=== PATIENT | male | born 1965 | race Caucasian/White ===

== ENCOUNTER 2016-10-16 13:11 | Emergency (ER) | payer MEDICARE, OTHER ==
[~2016-10-16 13:11] MED LIST: ACETAMINOPHEN PO; ACETAMINOPHEN650 M3 PO; ADVAIR 2501 DISK W/D PO; ALBUTEROL17 GM INH; ALBUTEROL17 GM PO; AMBIZINE25 MG PO; AMLODIPINE BESYL5 MG PO; ANTIVERT PO; ASPIRIN EC81 M1 PO; ASPIRIN81 M2 PO; ASPIRIN81 MG PO; ATIVAN INJ; ATIVAN PO; ATIVAN2 MG PO; ATORVASTATIN CA80 MG PO; AUGMENTIN875 MG PO; B-1100 MG PO; BAYER CHEWABLE81 MG PO; BONINE25 M1 PO; CARVEDILOL3.125 MG PO; CATAPRES0.1 MG PO; CIPRO PO; CLONIDINE HCL0.1 MG PO; CLOPIDOGREL75 MG PO; COMBIVENT U/D3 ML INH; COREG PO; COREG3.125 MG PO; COREG6.25 M1 PO; DEPAKOTE125 MG PO; DILANTIN KAPSE100 MG PO; DILANTIN PO; FAMVIR250 MG PO; FLOMAX0.4 M1 PO; FOLIC ACID1 MG PO; FOLIC ACID20 MG PO; FUROSEMIDE40 MG PO; GABAPENTIN800 MG PO; HYDROCODONE-APA1 T58 PO; HYDROCODONE/APA1 T16 PO; IBUPROFEN PO; IBUPROFEN800 MG PO; IMDUR-ER30 MG PO; KEPPRA1000 MG PO; KEPPRA500 M1 PO; KEPPRA500 M2 PO; KEPPRA500 MG PO; KLONOPIN PO; KLONOPIN1 MG PO; LASIX PO; LEVAQUIN PO; LIPITOR PO; LIPITOR20 MG PO; LIPITOR80 MG PO; LISINOPRIL-HCTZ1 T19 PO; LISINOPRIL2.5 MG PO; LORAZEPAM1 MG PO; LORTAB 101 TAB 10/5 PO; LORTAB 5-325 M1 EACH PO; LORTAB 7.5-3251 EACH PO; MEDI-MECLIZINE25 M1 PO; MULTI VITAMIN1 EACH PO; MULTI-VITAMIN1 EAC1 PO; MULTI-VITAMIN1 TAB PO; MULTIVITAMINS1 EAC2 PO; NEURONTIN PO; NEURONTIN300 MG PO; NEURONTIN800 MG PO; NITROGLYGERIN0.4 MG SL; NORCO 10-325 TA1 TAB PO; NORCO 10/3251 TAB PO; NORVASC PO; OMEPRAZOLE40 MG PO; ONE TABLET DAIL1 TA2 PO; OXYCODON HCL-1 UDTAB PO; OXYCODONE HCL15 MG PO; PERCOCET 10/3251 TAB PO; PLAVIX PO; PREDNISONE PO; PROAIR HFA8.5 GM INH; RANEXA PO; RANEXA500 MG PO; SERTRALINE HCL100 MG PO; THIAMINE HCL100 MG PO; TRAZODONE PO; VIMPAT50 MG PO; VISTARIL; VITAMIN B-1100 M1 PO; WATER PILL; ZESTRIL2.5 M1 PO; ZIAGEN300 M1; ZOLOFT PO
[2017-05-01] MEDS ORDERED: DEPAKOTE PO (10:06)
[2017-05-01] MEDS ORDERED: AMBIEN10 MG PO (10:07)
[2017-05-01] MEDS ORDERED: KLONOPIN1 MG PO (10:07)
[2017-05-01] MEDS ORDERED: HYDROCODON-ACE1 EAC5 PO (10:07)
[2017-05-01] MEDS ORDERED: NEURONTIN600 MG PO (10:09)
[2017-05-01] MEDS ORDERED: VIT B-12 PO (10:11)
[2017-05-01] MEDS ORDERED: CYMBALTA30 M1 PO (10:12)
[2017-05-01] MEDS ORDERED: XARELTO15 MG PO (10:12)
[2017-05-01] MEDS ORDERED: AMIODARONE HCL200 MG PO (10:12)
[2017-05-01] MEDS ORDERED: PROTONIX PO (10:13)
[2017-05-01] MEDS ORDERED: K-DUR20 ME1 PO (10:13)
[2017-05-01] MEDS ORDERED: CLOPIDOGREL75 MG PO (10:13)
[2017-05-01] MEDS ORDERED: COREG3.125 MG PO (10:13)
[2017-05-01] MEDS ORDERED: ASPIRIN81 MG PO (10:14)
== END 2016-10-16 13:26 | disposition home or self-care (01) ==
LOC: CED 13:11
DX: T80.89XA Other complications following infusion, transfusion and therapeutic injection, initial encounter (principal); F17.210 Nicotine dependence, cigarettes, uncomplicated; Z95.1 Presence of aortocoronary bypass graft; Z88.5 Allergy status to narcotic agent; Z88.6 Allergy status to analgesic agent; Z88.8 Allergy status to other drugs, medicaments and biological substances
CPT/HCPCS: 36415; 80048; 80076; 80307; 81003; 82150; 83690; 85025; 85610; 85730; 93005; 96361; 96374; 99283; 99284; G0480; J2405

== ENCOUNTER 2016-10-24 14:14 | Emergency (ER) | payer MEDICARE, OTHER ==
--- NOTE | ~2016-10-24 | EKG ---
PATIENT: DANIEL RENAE UNIT #: [id number] Ventricular Rate: 111 BPM Atrial Rate: 111 BPM P-R Interval: 132 ms QRS Duration: 104 ms Q-T Interval: 382 ms QTC Calculation(Bezet): 519 ms P Macomb: 32 degrees Calculated R Macomb: 22 degrees Calculated T Macomb: -11 degrees Diagnosis Line: Sinus tachycardia with occasional Premature Diagnosis Line: ventricular complexes Diagnosis Line: Possible Left atrial enlargement Diagnosis Line: Inferior infarct (cited on or before 19-MAR-2016) Diagnosis Line: Abnormal ECG Diagnosis Line: When compared with ECG of 16-OCT-2016 04:46, Diagnosis Line: Premature ventricular complexes are now Present Diagnosis Line: Confirmed by EDITH MARK MD ([id number]) on Diagnosis Line: 10/25/2016 8:02:06 AM INTERPRETING MD: DEEDEE MASON
--- NOTE | ~2016-10-24 | CR72 ---
[facility] A Service of [facility] & [facility] RADIOLOGY TEXT RESULTS PATIENT: DANIEL RENAE LOCATION: [facility] : [birth year] UNIT #: [id number] AGE: [address]: Doc Taylor MD SEX: M ORDER DR: [id number] [facility] [address] [place], [place] [address] [id number] E MR#: [id number] Acc #: [id number] NAME: DANIEL RENAE. : 1965 SEX: M STUDY DATE/TIME: 10/24/2016 14:00 UNIT: [facility] ROOM: STUDY DESCRIPTION: CR Chest Single View Portable Attending Physician: Doc Taylor M.D. Ordering Physician: Doc Taylor M.D. Primary Care Physician: Solo Jimenez M.D. MEDICAL IMAGING REPORT This report is preliminary unless electronic signature is present EXAM Portable chest 10/24/2016 HISTORY 51-year-old male with palpitations and chest pain beginning today. COMPARISON: Chest 08/18/2016 FINDINGS Frontal chest demonstrates clear lungs. No pleural effusion or pneumothorax. Heart size and mediastinum within normal limits. Pulmonary vasculature unremarkable. Left-sided AICD complex. Median sternotomy wires. IMPRESSION No acute cardiopulmonary findings. Left-sided AICD complex. Dictated by... Mendez Gutierrez M.D. THIS IS AN ELECTRONICALLY VERIFIED REPORT Mendez Gutierrez M.D. at 10/26/2016 8:34 AM ANDER/josefa TD: 10/25/2016 10:12 JOB #: [id number] MEDICAL IMAGING REPORT Page 1 of 1 COPY
[2016-10-24 14:25] LABS: BASOPHIL% 0.4 % (0-2.5); EOSINOPHIL# 0.2 X10e3 (0-0.7); EOSINOPHIL% 3.9 % (0.0-7.0); HEMATOCRIT 36.2 % (38.0-50.0); HEMOGLOBIN 11.7 gm/dL (13.0-16.0); LYMPHOCYTE# 1.2 X10e3 (1.0-3.5); LYMPHOCYTE% 23.3 % (17.0-45.0); MEAN CELL VOLUME 86.8 FL (83-96); MEAN CORPUSCULAR HGB CONC 32.3 g/dL (30-36); MEAN PLATELET VOLUME 9.9 FL (6.5-11.5); MONOCYTE# 0.4 X10e3 (0-1.0); MONOCYTE% 8.1 % (3.0-12.0); NEUTROPHIL# 3.4 X10e3 (1.5-7.1); NEUTROPHIL% 64.3 % (40-75); PLATELET COUNT 147 X10e3 (140-420); RED BLOOD COUNT 4.17 X10e (3.90-5.60); WHITE BLOOD COUNT 5.2 X10e3 (4.0-10.5)
[2016-10-24 14:34] LABS: DIFF IND NO
[2016-10-24 14:46] LABS: INR 1.1; PARTIAL THROMBOPLASTIN TIME 27.9 SECONDS (23.5-31.3); PROTHROMBIN TIME (PATIENT) 11.1 SECONDS (9.6-11.5)
[2016-10-24 15:01] LABS: ALBUMIN SERUM 3.3 g/dL (3.5-5.0); ALKALINE PHOSPHATASE 64 U/L (32-92); ALT (SGPT) 60 U/L (10-40); AST (SGOT) 61 U/L (10-42); BILIRUBIN, DIRECT 0.1 mg/dL (0.0-0.2); BILIRUBIN,INDIRECT 0.4 mg/dL (0.0-0.9); BILIRUBIN,TOTAL 0.5 mg/dL (0.2-2.0); BLOOD UREA NITROGEN 9 mg/dL (9-23); BUN/CREATININE RATIO 12.85; CALCIUM SERUM 8.7 mg/dL (8.4-10.2); CARBON DIOXIDE 26 mmol/L (22-31); CHLORIDE 105 mmol/L (100-111); CREATININE SERUM 0.7 mg/dL (0.6-1.4); GLOM FILT RATE Estimated ABOVE60 mL/min (>60); GLUCOSE FASTING 119 mg/dL (70-110); MAGNESIUM 1.7 mg/dL (1.6-3.0); POTASSIUM 3.8 mmol/L (3.5-5.1); PROTEIN TOTAL SERUM 6.5 g/dL (6.0-8.3); SODIUM 139 mmol/L (135-145)
[2016-10-24 15:02] LABS: POC - CKMB 1.1 ng/mL (0.0-7.9); POC - TROPONIN <0.05 ng/mL (<=0.05)
[2016-10-24 15:16] LABS: URINE SOURCE CLEAN CATCH
[2016-10-24 15:20] LABS: URINE APPEARANCE CLEAR; URINE BILIRUBIN NEG (NEG); URINE BLOOD NEG (NEG); URINE COLOR YELLOW; URINE GLUCOSE NEG (NEG); URINE KETONE NEG (NEG); URINE LEUKOCYTE ESTERASE NEG (NEG); URINE NITRATE NEG (NEG); URINE PH 6.5 (5-8); URINE PROTEIN NEG (NEG); URINE SPECIFIC GRAVITY 1.006 (1.003-1.035); URINE UROBILINOGEN 0.2 MG/DL (NEG)
[2016-10-24 15:27] LABS: CULTURE INDICATED? NO
[2016-10-24 15:31] LABS: AMPHETAMINE NEG (NEG); BARBITURATES NEG (NEG); BENZODIAZEPINES NEG (NEG); COCAINE NEG (NEG); MARIJUANA NEG (NEG); OPIATES POS (NEG); TRICYCLIC ANTIDEPRESSANTS POS (NEG); U METHADONE NEG (NEG)
[2016-10-24 17:54] LABS: POC - CKMB <1.0 ng/mL (0.0-7.9); POC - TROPONIN <0.05 ng/mL (<=0.05)
[2017-05-01] MEDS ORDERED: DEPAKOTE PO (10:06)
[2017-05-01] MEDS ORDERED: KLONOPIN1 MG PO (10:07)
[2017-05-01] MEDS ORDERED: AMBIEN10 MG PO (10:07)
[2017-05-01] MEDS ORDERED: HYDROCODON-ACE1 EAC5 PO (10:07)
[2017-05-01] MEDS ORDERED: NEURONTIN600 MG PO (10:09)
[2017-05-01] MEDS ORDERED: VIT B-12 PO (10:11)
[2017-05-01] MEDS ORDERED: CYMBALTA30 M1 PO (10:12)
[2017-05-01] MEDS ORDERED: AMIODARONE HCL200 MG PO (10:12)
[2017-05-01] MEDS ORDERED: XARELTO15 MG PO (10:12)
[2017-05-01] MEDS ORDERED: PROTONIX PO (10:13)
[2017-05-01] MEDS ORDERED: K-DUR20 ME1 PO (10:13)
[2017-05-01] MEDS ORDERED: COREG3.125 MG PO (10:13)
[2017-05-01] MEDS ORDERED: CLOPIDOGREL75 MG PO (10:13)
[2017-05-01] MEDS ORDERED: ASPIRIN81 MG PO (10:14)
== END 2016-10-24 20:20 | disposition home or self-care (01) ==
LOC: CED 14:14
PROVIDERS: Emergency Medicine
DX: R07.89 Other chest pain (principal); R00.2 Palpitations; I25.10 Atherosclerotic heart disease of native coronary artery without angina pectoris; I11.0 Hypertensive heart disease with heart failure; I50.9 Heart failure, unspecified; Z95.5 Presence of coronary angioplasty implant and graft; Z95.1 Presence of aortocoronary bypass graft; Z95.0 Presence of cardiac pacemaker; Z88.5 Allergy status to narcotic agent; F17.200 Nicotine dependence, unspecified, uncomplicated
CPT/HCPCS: 36415; 71010; 80048; 80076; 80307; 81003; 82553; 83735; 84484; 85025; 85379; 85610; 85730; 93005; 96360; 99284

== ENCOUNTER 2016-11-08 01:17 | Inpatient (IN) | payer MEDICARE, OTHER ==
--- NOTE | ~2016-11-08 | EKG ---
PATIENT: DANIEL RENAE UNIT #: [id number] Ventricular Rate: 115 BPM Atrial Rate: 115 BPM P-R Interval: 142 ms QRS Duration: 100 ms Q-T Interval: 330 ms QTC Calculation(Bezet): 456 ms P Marshall: 66 degrees Calculated R Marshall: 39 degrees Calculated T Marshall: -40 degrees Diagnosis Line: Sinus tachycardia Diagnosis Line: Inferior infarct (cited on or before 19-MAR-2016) Diagnosis Line: Abnormal ECG Diagnosis Line: When compared with ECG of 08-NOV-2016 01:52, Diagnosis Line: (unconfirmed) Diagnosis Line: Left posterior fascicular block is no longer Diagnosis Line: Present Diagnosis Line: Questionable change in initial forces of Inferior Diagnosis Line: leads Diagnosis Line: Confirmed by DIPESH CRUZ MD ([id number]) on 11/09/2016 Diagnosis Line: 11:06:01 PM INTERPRETING MD: NANCY MASON
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
--- NOTE | ~2016-11-08 | CR72 ---
[facility] A Service of [facility] & [facility] RADIOLOGY TEXT RESULTS PATIENT: DANIEL RENAE LOCATION: [place] [id number] : [birth year] UNIT #: [id number] AGE: [address]: Cholo Brunson MD SEX: M ORDER DR: [id number] [facility] [address] [place], [place] [address] [id number] I MR#: [id number] Acc #: [id number] NAME: DANIEL RENAE. : 1965 SEX: M STUDY DATE/TIME: 11/08/2016 1:11 UNIT: [facility] ROOM: [facility] STUDY DESCRIPTION: CR Chest Single View Portable Attending Physician: Cholo Brunson M.D. Ordering Physician: Manjula Pablo M.D. Primary Care Physician: Solo Jimenez M.D. MEDICAL IMAGING REPORT This report is preliminary unless electronic signature is present EXAM Portable chest INDICATIONS Chest pain tonight. PROCEDURE Frontal view chest. COMPARISON 11/02/2016 FINDINGS Heart size stable. Previous CABG and AICD for pacer placement. The lungs and are clear. No pneumothorax or pleural fluid. IMPRESSION No active process. No change from 11/02/2016. Dictated by... Manoj Moeller M.D. THIS IS AN ELECTRONICALLY VERIFIED REPORT Manoj Moeller M.D. at 11/08/2016 9:56 PM EEBora/josefa TD: 11/08/2016 07:52 JOB #: [id number] MEDICAL IMAGING REPORT Page 1 of 1 COPY
--- NOTE | ~2016-11-08 | XA166 ---
[facility] A Service of [facility] & [facility] RADIOLOGY TEXT RESULTS PATIENT: DANIEL RENAE [address]ATION: [address] : [birth year] UNIT #: [id number] AGE: [address]: Cholo Brunson MD SEX: M ORDER DR: [id number] [facility] [address] [place], [place] [address] [id number] I MR#: [id number] Acc #: [id number] NAME: DANIEL RENAE. : 1965 SEX: M STUDY DATE/TIME: 11/08/2016 7:32 UNIT: [facility] ROOM: [facility] STUDY DESCRIPTION: XA PICC Line Placement WO Port Attending Physician: Cholo Brunson M.D. Ordering Physician: Cholo Brunson M.D. Primary Care Physician: Solo Jimenez M.D. MEDICAL IMAGING REPORT This report is preliminary unless electronic signature is present EXAM PICC line placement under ultrasound and fluoroscopy. PRE-PROCEDURE The procedure was explained to the patient and/or patient pharmaceutical specialty representative, including risks, benefits, potential complications and potential for alternative forms of treatment. Informed consent was obtained, and prior to initiating the procedure, a formal timeout procedure was performed. PROCEDURE Using full standard sterile barrier technique, including caps, gowns, gloves, masks, as well as sterile skin preparation and standard sterile draping, the right arm was prepped and draped in the usual fashion, and real-time sterile ultrasound guidance was used to localize an arm vein and to confirm vessel patency. A hard copy ultrasound image was recorded. After local anesthesia with 1% Xylocaine, the right brachial vein was punctured using real-time sterile ultrasound guidance, and an 0.018 guidewire was advanced into the superior vena cava, using fluoroscopic guidance. A 5 Georgian dual-lumen PICC was then measured and deployed with the tip positioned in the superior vena cava. The position of the line was documented with a radiographic image. The line was secured in place with an adhesive dressing and an antibiotic patch was applied. Total fluoro time was 0.2 minutes. Estimated exposure 1 mGy air kerma. IMPRESSION Successful placement of a 42-cm 5 Georgian lumen PowerPICC via the right arm under ultrasound and fluoroscopic guidance. The tip of the PICC is in good position in the superior vena cava. Dictated by... [facility] A Service of [facility] RADIOLOGY TEXT RESULTS PATIENT: DANIEL RENAE [address]ATION: [address] : [birth year] UNIT #: [id number] AGE: [address]: Cholo Brunson MD SEX: M ORDER DR: Elliott Lin M.D. THIS IS AN ELECTRONICALLY VERIFIED REPORT Elliott Lin M.D. at 11/11/2016 12:00 PM Maycol TD: 11/08/2016 19:38 JOB #: [id number] MEDICAL IMAGING REPORT Page 1 of 1 COPY
[2016-11-08 01:27] LABS: BASOPHIL% 0.7 % (0-2.5); EOSINOPHIL# 0.1 X10e3 (0-0.7); EOSINOPHIL% 1.7 % (0.0-7.0); HEMATOCRIT 38.1 % (38.0-50.0); HEMOGLOBIN 12.4 gm/dL (13.0-16.0); LYMPHOCYTE% 36.1 % (17.0-45.0); MEAN CELL VOLUME 85.7 FL (83-96); MEAN CORPUSCULAR HEMOGLOBIN 27.8 PG (28-34); MEAN CORPUSCULAR HGB CONC 32.5 g/dL (30-36); MEAN PLATELET VOLUME 9.4 FL (6.5-11.5); MONOCYTE# 0.6 X10e3 (0-1.0); MONOCYTE% 11.5 % (3.0-12.0); NEUTROPHIL# 2.8 X10e3 (1.5-7.1); PLATELET COUNT 157 X10e3 (140-420); RED BLOOD COUNT 4.45 X10e (3.90-5.60); WHITE BLOOD COUNT 5.5 X10e3 (4.0-10.5)
[2016-11-08 01:28] LABS: DIFF IND NO
[2016-11-08 01:34] LABS: POC - CKMB <1.0 ng/mL (0.0-7.9); POC - TROPONIN <0.05 ng/mL (<=0.05)
[2016-11-08 01:40] LABS: INR 1.1; PARTIAL THROMBOPLASTIN TIME 24.2 SECONDS (23.5-31.3); PROTHROMBIN TIME (PATIENT) 11.2 SECONDS (9.6-11.5)
[2016-11-08 01:49] LABS: ALBUMIN SERUM 3.7 g/dL (3.5-5.0); ALCOHOL BLOOD <5 mg/dL (0); ALKALINE PHOSPHATASE 67 U/L (32-92); ALT (SGPT) 142 U/L (10-40); AST (SGOT) 107 U/L (10-42); BILIRUBIN, DIRECT <0.1 mg/dL (0.0-0.2); BILIRUBIN,INDIRECT 0.5 mg/dL (0.0-0.9); BILIRUBIN,TOTAL 0.6 mg/dL (0.2-2.0); BLOOD UREA NITROGEN 10 mg/dL (9-23); CALCIUM SERUM 9.2 mg/dL (8.4-10.2); CARBON DIOXIDE 24 mmol/L (22-31); CHLORIDE 104 mmol/L (100-111); CREATININE SERUM 0.8 mg/dL (0.6-1.4); GLOM FILT RATE Estimated 104.2 mL/min (>60); GLUCOSE FASTING 119 mg/dL (70-110); POTASSIUM 3.5 mmol/L (3.5-5.1); PROTEIN TOTAL SERUM 7.4 g/dL (6.0-8.3); SODIUM 140 mmol/L (135-145)
[2016-11-08 03:13] LABS: POC - TROPONIN <0.05 ng/mL (<=0.05)
[2016-11-08 03:40] LABS: URINE APPEARANCE CLEAR; URINE BILIRUBIN NEG (NEG); URINE BLOOD NEG (NEG); URINE COLOR YELLOW; URINE GLUCOSE NEG (NEG); URINE KETONE NEG (NEG); URINE LEUKOCYTE ESTERASE NEG (NEG); URINE NITRATE NEG (NEG); URINE PH 6.5 (5-8); URINE PROTEIN NEG (NEG); URINE SOURCE CLEAN CATCH; URINE SPECIFIC GRAVITY 1.017 (1.003-1.035)
[2016-11-08 03:42] LABS: CULTURE INDICATED? NO
[2016-11-08 03:51] LABS: AMPHETAMINE NEG (NEG); BARBITURATES NEG (NEG); BENZODIAZEPINES POS (NEG); COCAINE NEG (NEG); MARIJUANA NEG (NEG); OPIATES POS (NEG); TRICYCLIC ANTIDEPRESSANTS POS (NEG); U METHADONE NEG (NEG)
[2016-11-08] MEDS ORDERED: ISOSORBIDE MONO30 M1 PO (04:57)
[2016-11-08] MEDS ORDERED: KEPPRA XR500 MG PO (04:59)
[2016-11-08] MEDS ORDERED: LORAZEPAM1 MG PO (05:00)
[2016-11-08] MEDS ORDERED: ZESTRIL2.5 M1 PO (05:00)
[2016-11-08] MEDS ORDERED: PROAIR HFA8.5 GM INH (05:02)
[2016-11-08] MEDS ORDERED: COUMADIN2.5 MG PO (05:02)
[2016-11-08] MEDS ORDERED: TRAMADOL HCL50 M1 PO (05:03)
[2016-11-08] MEDS ORDERED: RANEXA500 MG (05:03)
[2016-11-08] MEDS ORDERED: QUETIAPINE FUM300 MG PO (05:04)
[2016-11-08] MEDS ORDERED: NEURONTIN800 MG DOB (05:05)
[2016-11-08] MEDS ORDERED: NEURONTIN300 MG PO (05:06)
[2016-11-08] MEDS ORDERED: LOVENOX40 MG/0.4 INJ (05:06)
[2016-11-08] MEDS ORDERED: KLONOPIN1 M1 PO (05:08)
[2016-11-08] MEDS ORDERED: BREO ELLIPTA 21 EACH INH (05:08)
[2016-11-08 08:24] LABS: CALCIUM SERUM 8.9 mg/dL (8.4-10.2); CREATININE SERUM 0.8 mg/dL (0.6-1.4); GLOM FILT RATE Estimated 104.2 mL/min (>60); MAGNESIUM 1.9 mg/dL (1.6-3.0); POTASSIUM 4.3 mmol/L (3.5-5.1)
[2016-11-08] MEDS ORDERED: LIPITOR80 MG PO (12:37)
[2016-11-08] MEDS ORDERED: COREG6.25 M1 PO (12:37)
[2016-11-08] MEDS ORDERED: XARELTO15 MG PO (12:38)
[2016-11-08] MEDS ORDERED: XARELTO20 MG PO (12:39)
[2017-05-01] MEDS ORDERED: DEPAKOTE PO (10:06)
[2017-05-01] MEDS ORDERED: AMBIEN10 MG PO (10:07)
[2017-05-01] MEDS ORDERED: KLONOPIN1 MG PO (10:07)
[2017-05-01] MEDS ORDERED: HYDROCODON-ACE1 EAC5 PO (10:07)
[2017-05-01] MEDS ORDERED: NEURONTIN600 MG PO (10:09)
[2017-05-01] MEDS ORDERED: VIT B-12 PO (10:11)
[2017-05-01] MEDS ORDERED: CYMBALTA30 M1 PO (10:12)
[2017-05-01] MEDS ORDERED: XARELTO15 MG PO (10:12)
[2017-05-01] MEDS ORDERED: AMIODARONE HCL200 MG PO (10:12)
[2017-05-01] MEDS ORDERED: PROTONIX PO (10:13)
[2017-05-01] MEDS ORDERED: CLOPIDOGREL75 MG PO (10:13)
[2017-05-01] MEDS ORDERED: K-DUR20 ME1 PO (10:13)
[2017-05-01] MEDS ORDERED: COREG3.125 MG PO (10:13)
[2017-05-01] MEDS ORDERED: ASPIRIN81 MG PO (10:14)
== END 2016-11-08 13:30 | disposition home or self-care (01) | DRG 310 ==
LOC: CED 01:17 → CEDOF 02:25 → CICCU2 04:25
PROVIDERS: Student in an Organized Health Care Education/Training Program
PROC: 02HV33Z Insertion of Infusion Device into Superior Vena Cava, Percutaneous Approach (ICD-10-PCS; principal; 2016-11-08)
PROC: B518YZA Fluoroscopy of Superior Vena Cava using Other Contrast, Guidance (ICD-10-PCS; 2016-11-08)
PROC: B548ZZA Ultrasonography of Superior Vena Cava, Guidance (ICD-10-PCS; 2016-11-08)
DX: I47.2 Ventricular tachycardia (principal); Z95.1 Presence of aortocoronary bypass graft; I10 Essential (primary) hypertension; J44.9 Chronic obstructive pulmonary disease, unspecified; Z86.19 Personal history of other infectious and parasitic diseases; E78.5 Hyperlipidemia, unspecified; K21.9 Gastro-esophageal reflux disease without esophagitis; G40.909 Epilepsy, unspecified, not intractable, without status epilepticus; F32.9 Major depressive disorder, single episode, unspecified; Z86.718 Personal history of other venous thrombosis and embolism; Z86.73 Personal history of transient ischemic attack (TIA), and cerebral infarction without residual deficits; F17.210 Nicotine dependence, cigarettes, uncomplicated; I25.5 Ischemic cardiomyopathy; Z79.01 Long term (current) use of anticoagulants; I25.10 Atherosclerotic heart disease of native coronary artery without angina pectoris; Z95.5 Presence of coronary angioplasty implant and graft
CPT/HCPCS: 71010; 76937; 77001; 80048; 80076; 80307; 81003; 82553; 83735; 83880; 84443; 84484; 85025; 85610; 85730; 93005; 93306; 96374; 96375; 99291; C1751; C9113; G0480; J0282

== ENCOUNTER 2016-11-18 20:49 | Emergency (ER) | payer MEDICARE, OTHER ==
--- NOTE | ~2016-11-18 | ER ---
Unit #: [id number] #: [id number] Patient: DANIEL VANG [id number] [address] [place], [place] [address] [id number] E MR#: [id number] NAME: DANIEL VANG ROOM: Sex: M Age: 51 : 1965 Service Date: 11/18/2016 Attending Physician: Blaine Leyva M.D. Primary Care Physician: Solo Jimenez M.D. EMERGENCY DEPT PHYSICIAN NOTE Please see the written T-sheet for the full details of the encounter. Mr. aVng is a 51-year-old man who is a frequent visitor to ours and other hospital facilities throughout the region. He has a history of chronic pain issues, narcotic abuse, and medical noncompliance. Mr. Vang presented to the emergency department today with a chief complaint of a fall off a 12 foot ladder landing on his back which he stated occurred yesterday. He complained of increasing back pain throughout the day today. He did remark that he was evaluated for the same complaint yesterday at [place]. On exam, the patient appeared in no apparent distress. The area of pain he indicated was the right costovertebral angle which showed a well-healed abrasion in that area. However, no obvious ecchymoses or external trauma was otherwise appreciated. The patient was diffusely tender over the bones in the back and flank. Labs were ordered as well as CT abdomen and pelvis to address the patient's flank pain and what was described as a significant injury from a high fall. While tests were pending, records were obtained from [place]. It shows that the patient was evaluated on 11/16/16 in the emergency department for the chief complaint of right sided back pain. He stated that it started at 4:30 that morning; however, on his interview with [place], he stated that he denied any recent injury to his back. This directly contradicts the history that he gave us. He did report, at [place], that he fell approximately two weeks ago when a "dog jumped on him." Labs from that visit were reviewed showing no acute abnormalities. The patient's INR was noted to be subtherapeutic at 1.1. The records state that the patient is supposed to be maintained on Coumadin for a previously diagnosed DVT. A CT abdomen and pelvis was also performed at their facility which showed no evidence of acute trauma and no acute disease. Here, the patient's labs were again largely unremarkable excluding a low potassium at 2.9, mild elevation of AST and ALT, and again subtherapeutic INR at 1.1. Urinalysis showed no evidence of any blood related to the patient's reported trauma. CT of the abdomen and pelvis was again performed here. CT performed today showed no traumatic injury to the bones or solid organs and no acute findings. Findings discussed on the CT abdomen and pelvis were all chronic findings, stable from previous CTs performed at this facility. As such, the patient will likely be discharged home and, as the workup has failed to yield any acute traumatic injury that would require the prescription of narcotics, these will likely not be prescribed for the patient. Instead, he will be encouraged to use hvvv-hbh-imdbkyh pain medication and follow up with his doctor should his symptoms persist. He will also be encouraged to take his Coumadin if he has not been, as prescribed by his physician, and to follow up with regular INR checks. Unit #: [id number] #: [id number] Patient: DANIEL VANG Dictated by... Pau Ceja/anita TD: 11/19/2016 06:10 JOB #: [id number] EMERGENCY DEPT PHYSICIAN NOTE Page 1 of 1 X Blaine Leyva MD X EMERGENCY DEPARTMENT REPORT
--- NOTE | ~2016-11-18 | CT4 ---
[facility] A Service of [facility] & [facility] RADIOLOGY TEXT RESULTS PATIENT: DANIEL RENAE LOCATION: [facility] : 67 UNIT #: [id number] AGE: [address]: Blaine Leyva MD SEX: M ORDER DR: [id number] [facility] [address] [place], [place] [address] [id number] E MR#: [id number] Acc #: [id number] NAME: DANIEL RENAE. : 1965 SEX: M STUDY DATE/TIME: 11/18/2016 20:23 UNIT: [facility] ROOM: STUDY DESCRIPTION: CT Abd and Pelv Wo Cont Attending Physician: Blaine Leyva M.D. Ordering Physician: Blaine Leyva M.D. Primary Care Physician: Solo Jimenez M.D. MEDICAL IMAGING REPORT This report is preliminary unless electronic signature is present EXAM CT of the abdomen and pelvis without contrast media HISTORY Fell off roof yesterday with low back pain worse today. TECHNIQUE Transaxial imaging of the abdomen and pelvis was performed without contrast media. This CT exam was performed with one or more of the following radiation dose reduction techniques: Automatic exposure control, adjustment of mA and/or kV according to patient size, and iterative reconstruction. FINDINGS Scans through the lung bases show some mild basilar atelectasis. There is underlying emphysematous lung disease and postop changes of prior bypass and transvenous pacemaker placement. Scans through the liver parenchyma are normal. The gallbladder is contracted. Spleen is normal. The adrenal glands are normal and the pancreas is normal. On the left side, the patient has a hyperdense renal lesion measuring 9 mm in diameter. On the right side, patient has a hyperdense renal lesion measuring 1 cm in size. Smaller hyperdense lesions are present in the right kidney. Previous CT of July suggests these all represent cysts. No dilated or thickened loops of bowel are identified. Appendix is normal. There is atherosclerotic disease in the aorta and iliac vessels. Scans through the pelvis show no pelvic masses or fluid collections. The bladder is unremarkable. Bone windows are reviewed. No fractures are identified. CONCLUSION 1. Underlying chronic lung disease with postop changes of prior sternotomy and transvenous pacemaker placement. [facility] A Service of [facility] & [facility] RADIOLOGY TEXT RESULTS PATIENT: DANIEL RENAE LOCATION: [facility] : 67 UNIT #: [id number] AGE: [address]: Blaine Leyva MD SEX: M ORDER DR: 2. Hyperdense lesions within the kidney, which on prior imaging appear to represents cysts, likely with a small amount of hemorrhage or debris. 3. Diffuse atherosclerotic disease. 4. No acute findings in the abdomen or pelvis. 5. No fractures identified. Dictated by... Elliott Lin M.D. THIS IS AN ELECTRONICALLY VERIFIED REPORT Elliott Lin M.D. at 11/22/2016 7:21 AM KEI/volodymyr TD: 11/19/2016 00:25 JOB #: [id number] MEDICAL IMAGING REPORT Page 1 of 1 COPY
[2016-11-18 20:31] LABS: URINE SOURCE CLEAN CATCH
[2016-11-18 20:42] LABS: URINE APPEARANCE CLEAR; URINE BILIRUBIN NEG (NEG); URINE BLOOD NEG (NEG); URINE COLOR YELLOW; URINE GLUCOSE NEG (NEG); URINE KETONE NEG (NEG); URINE LEUKOCYTE ESTERASE NEG (NEG); URINE NITRATE NEG (NEG); URINE PH 6.5 (5-8); URINE PROTEIN NEG (NEG)
[2016-11-18 20:42] LABS: BASOPHIL% 0.7 % (0-2.5); EOSINOPHIL# 0.2 X10e3 (0-0.7); HEMATOCRIT 29.7 % (38.0-50.0); HEMOGLOBIN 9.6 gm/dL (13.0-16.0); LYMPHOCYTE# 1.7 X10e3 (1.0-3.5); LYMPHOCYTE% 27.8 % (17.0-45.0); MEAN CELL VOLUME 84.8 FL (83-96); MEAN CORPUSCULAR HEMOGLOBIN 27.5 PG (28-34); MEAN CORPUSCULAR HGB CONC 32.4 g/dL (30-36); MEAN PLATELET VOLUME 9.3 FL (6.5-11.5); MONOCYTE# 0.9 X10e3 (0-1.0); NEUTROPHIL# 3.3 X10e3 (1.5-7.1); NEUTROPHIL% 54.5 % (40-75); PLATELET COUNT 154 X10e3 (140-420); RED CELL DISTRIBUTION WIDTH 15.2 % (11.0-15.5); WHITE BLOOD COUNT 6.1 X10e3 (4.0-10.5)
[2016-11-18 20:47] LABS: CULTURE INDICATED? NO
[~2016-11-18 20:49] MED LIST changes: +BREO ELLIPTA 21 EACH INH; +COUMADIN2.5 MG PO; +ISOSORBIDE MONO30 M1 PO; +KEPPRA XR500 MG PO; +KLONOPIN1 M1 PO; +LOVENOX40 MG/0.4 INJ; +NEURONTIN800 MG DOB; +QUETIAPINE FUM300 MG PO; +RANEXA500 MG; +TRAMADOL HCL50 M1 PO; +XARELTO15 MG PO; +XARELTO20 MG PO
[2016-11-18 20:55] LABS: DIFF IND NO
[2016-11-18 21:03] LABS: INR 1.1; PROTHROMBIN TIME (PATIENT) 11.7 SECONDS (9.6-11.5)
[2016-11-18 21:06] LABS: PARTIAL THROMBOPLASTIN TIME <20.0 SECONDS (23.5-31.3)
[2016-11-18 21:11] LABS: ALBUMIN SERUM 3.2 g/dL (3.5-5.0); ALKALINE PHOSPHATASE 50 U/L (32-92); ALT (SGPT) 97 U/L (10-40); AST (SGOT) 193 U/L (10-42); BILIRUBIN, DIRECT 0.1 mg/dL (0.0-0.2); BILIRUBIN,INDIRECT 0.4 mg/dL (0.0-0.9); BILIRUBIN,TOTAL 0.5 mg/dL (0.2-2.0); CALCIUM SERUM 8.6 mg/dL (8.4-10.2); CARBON DIOXIDE 28 mmol/L (22-31); CHLORIDE 108 mmol/L (100-111); CREATININE SERUM 0.6 mg/dL (0.6-1.4); GLOM FILT RATE Estimated 117.3 mL/min (>60); GLUCOSE FASTING 121 mg/dL (70-110); PROTEIN TOTAL SERUM 6.2 g/dL (6.0-8.3); SODIUM 143 mmol/L (135-145)
[2016-11-18 21:12] LABS: BLOOD UREA NITROGEN <5 mg/dL (9-23); BUN/CREATININE RATIO 8.33
[2016-11-18 21:13] LABS: POTASSIUM 2.9 mmol/L (3.5-5.1)
[2017-05-01] MEDS ORDERED: DEPAKOTE PO (10:06)
[2017-05-01] MEDS ORDERED: KLONOPIN1 MG PO (10:07)
[2017-05-01] MEDS ORDERED: HYDROCODON-ACE1 EAC5 PO (10:07)
[2017-05-01] MEDS ORDERED: AMBIEN10 MG PO (10:07)
[2017-05-01] MEDS ORDERED: NEURONTIN600 MG PO (10:09)
[2017-05-01] MEDS ORDERED: VIT B-12 PO (10:11)
[2017-05-01] MEDS ORDERED: XARELTO15 MG PO (10:12)
[2017-05-01] MEDS ORDERED: CYMBALTA30 M1 PO (10:12)
[2017-05-01] MEDS ORDERED: AMIODARONE HCL200 MG PO (10:12)
[2017-05-01] MEDS ORDERED: K-DUR20 ME1 PO (10:13)
[2017-05-01] MEDS ORDERED: CLOPIDOGREL75 MG PO (10:13)
[2017-05-01] MEDS ORDERED: COREG3.125 MG PO (10:13)
[2017-05-01] MEDS ORDERED: PROTONIX PO (10:13)
[2017-05-01] MEDS ORDERED: ASPIRIN81 MG PO (10:14)
== END 2016-11-18 21:34 | disposition home or self-care (01) ==
LOC: CED 20:49
PROVIDERS: Emergency Medicine
DX: S30.0XXA Contusion of lower back and pelvis, initial encounter (principal); E87.6 Hypokalemia; I10 Essential (primary) hypertension; F31.9 Bipolar disorder, unspecified; F17.210 Nicotine dependence, cigarettes, uncomplicated; Z79.899 Other long term (current) drug therapy; Z88.5 Allergy status to narcotic agent; Z88.6 Allergy status to analgesic agent; Z88.8 Allergy status to other drugs, medicaments and biological substances; W11.XXXA Fall on and from ladder, initial encounter; Y92.009 Unspecified place in unspecified non-institutional (private) residence as the place of occurrence of the external cause
CPT/HCPCS: 36415; 74176; 80048; 80076; 81003; 85025; 85610; 85730; 99284

== ENCOUNTER 2016-12-10 23:59 | Emergency (ER) | payer MEDICARE, OTHER ==
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
--- NOTE | ~2016-12-10 | EKG ---
PATIENT: DANIEL RENAE UNIT #: [id number] Ventricular Rate: 69 BPM Atrial Rate: 69 BPM P-R Interval: 134 ms QRS Duration: 102 ms Q-T Interval: 428 ms QTC Calculation(Bezet): 458 ms P [place]: 15 degrees Calculated R [place]: 57 degrees Calculated T [place]: -20 degrees Diagnosis Line: Normal sinus rhythm Diagnosis Line: T wave abnormality, consider inferior ischemia Diagnosis Line: Abnormal ECG Diagnosis Line: When compared with ECG of 08-NOV-2016 02:02, Diagnosis Line: Vent. rate has decreased BY 46 BPM Diagnosis Line: Criteria for Inferior infarct are no longer Diagnosis Line: Present Diagnosis Line: Confirmed by MARGOT JIM MD ([id number]) on 12/12/2016 Diagnosis Line: 4:05:41 PM INTERPRETING MD: DIANDRA MASON
[2016-12-11 00:55] LABS: BASOPHIL% 0.5 % (0-2.5); EOSINOPHIL# 0.1 X10e3 (0-0.7); EOSINOPHIL% 1.5 % (0.0-7.0); HEMATOCRIT 36.6 % (38.0-50.0); HEMOGLOBIN 11.7 gm/dL (13.0-16.0); LYMPHOCYTE% 28.1 % (17.0-45.0); MEAN CELL VOLUME 84.5 FL (83-96); MEAN CORPUSCULAR HEMOGLOBIN 26.9 PG (28-34); MEAN CORPUSCULAR HGB CONC 31.9 g/dL (30-36); MEAN PLATELET VOLUME 9.5 FL (6.5-11.5); MONOCYTE# 1.1 X10e3 (0-1.0); MONOCYTE% 15.3 % (3.0-12.0); NEUTROPHIL# 3.8 X10e3 (1.5-7.1); NEUTROPHIL% 54.6 % (40-75); PLATELET COUNT 135 X10e3 (140-420); RED BLOOD COUNT 4.34 X10e (3.90-5.60); RED CELL DISTRIBUTION WIDTH 15.5 % (11.0-15.5)
[2016-12-11 00:56] LABS: DIFF IND NO
[2016-12-11 01:03] LABS: POC - CKMB 1.8 ng/mL (0.0-7.9); POC - TROPONIN <0.05 ng/mL (<=0.05)
[2016-12-11 01:09] LABS: PARTIAL THROMBOPLASTIN TIME 23.7 SECONDS (23.5-31.3); PROTHROMBIN TIME (PATIENT) 10.5 SECONDS (9.6-11.5)
[2016-12-11 01:17] LABS: ALBUMIN SERUM 3.9 g/dL (3.5-5.0); ALKALINE PHOSPHATASE 63 U/L (32-92); ALT (SGPT) 76 U/L (10-40); AST (SGOT) 52 U/L (10-42); BILIRUBIN, DIRECT 0.1 mg/dL (0.0-0.2); BILIRUBIN,INDIRECT 0.4 mg/dL (0.0-0.9); BILIRUBIN,TOTAL 0.5 mg/dL (0.2-2.0); BLOOD UREA NITROGEN 9 mg/dL (9-23); BUN/CREATININE RATIO 11.25; CALCIUM SERUM 8.7 mg/dL (8.4-10.2); CARBON DIOXIDE 28 mmol/L (22-31); CHLORIDE 104 mmol/L (100-111); CREATININE SERUM 0.8 mg/dL (0.6-1.4); GLOM FILT RATE Estimated 104.2 mL/min (>60); GLUCOSE FASTING 90 mg/dL (70-110); POTASSIUM 4.3 mmol/L (3.5-5.1); PROTEIN TOTAL SERUM 7.4 g/dL (6.0-8.3); SALICYLATE <4.0 mg/dL; SODIUM 139 mmol/L (135-145)
[2016-12-11 01:19] LABS: ACETAMINOPHEN <10 ug/mL; ALCOHOL BLOOD <5 mg/dL (0)
[2016-12-11 02:29] LABS: AMPHETAMINE NEG (NEG); BARBITURATES NEG (NEG); BENZODIAZEPINES POS (NEG); COCAINE NEG (NEG); MARIJUANA POS (NEG); OPIATES POS (NEG); TRICYCLIC ANTIDEPRESSANTS NEG (NEG); U METHADONE NEG (NEG)
[2017-05-01] MEDS ORDERED: DEPAKOTE PO (10:06)
[2017-05-01] MEDS ORDERED: AMBIEN10 MG PO (10:07)
[2017-05-01] MEDS ORDERED: KLONOPIN1 MG PO (10:07)
[2017-05-01] MEDS ORDERED: HYDROCODON-ACE1 EAC5 PO (10:07)
[2017-05-01] MEDS ORDERED: NEURONTIN600 MG PO (10:09)
[2017-05-01] MEDS ORDERED: VIT B-12 PO (10:11)
[2017-05-01] MEDS ORDERED: XARELTO15 MG PO (10:12)
[2017-05-01] MEDS ORDERED: AMIODARONE HCL200 MG PO (10:12)
[2017-05-01] MEDS ORDERED: CYMBALTA30 M1 PO (10:12)
[2017-05-01] MEDS ORDERED: CLOPIDOGREL75 MG PO (10:13)
[2017-05-01] MEDS ORDERED: K-DUR20 ME1 PO (10:13)
[2017-05-01] MEDS ORDERED: PROTONIX PO (10:13)
[2017-05-01] MEDS ORDERED: COREG3.125 MG PO (10:13)
[2017-05-01] MEDS ORDERED: ASPIRIN81 MG PO (10:14)
== END 2016-12-11 02:58 | disposition home or self-care (01) ==
LOC: CED 23:59
PROVIDERS: Emergency Medicine
DX: R51 Headache (principal); F19.10 Other psychoactive substance abuse, uncomplicated; I25.2 Old myocardial infarction; I50.9 Heart failure, unspecified; J44.9 Chronic obstructive pulmonary disease, unspecified; F17.210 Nicotine dependence, cigarettes, uncomplicated; Z88.8 Allergy status to other drugs, medicaments and biological substances; Z79.899 Other long term (current) drug therapy
CPT/HCPCS: 36415; 70450; 80048; 80076; 80307; 82553; 84484; 85025; 85610; 85730; 93005; 96361; 96374; 99284; G0480; J2405

== ENCOUNTER 2017-01-09 15:08 | Emergency (ER) | payer MEDICARE, OTHER ==
[2017-05-01] MEDS ORDERED: DEPAKOTE PO (10:06)
[2017-05-01] MEDS ORDERED: AMBIEN10 MG PO (10:07)
[2017-05-01] MEDS ORDERED: HYDROCODON-ACE1 EAC5 PO (10:07)
[2017-05-01] MEDS ORDERED: KLONOPIN1 MG PO (10:07)
[2017-05-01] MEDS ORDERED: NEURONTIN600 MG PO (10:09)
[2017-05-01] MEDS ORDERED: VIT B-12 PO (10:11)
[2017-05-01] MEDS ORDERED: CYMBALTA30 M1 PO (10:12)
[2017-05-01] MEDS ORDERED: AMIODARONE HCL200 MG PO (10:12)
[2017-05-01] MEDS ORDERED: XARELTO15 MG PO (10:12)
[2017-05-01] MEDS ORDERED: CLOPIDOGREL75 MG PO (10:13)
[2017-05-01] MEDS ORDERED: COREG3.125 MG PO (10:13)
[2017-05-01] MEDS ORDERED: PROTONIX PO (10:13)
[2017-05-01] MEDS ORDERED: K-DUR20 ME1 PO (10:13)
[2017-05-01] MEDS ORDERED: ASPIRIN81 MG PO (10:14)
== END 2017-01-10 01:59 | disposition home or self-care (01) ==
LOC: CED 15:08
DX: T40.2X1A Poisoning by other opioids, accidental (unintentional), initial encounter (principal); Y92.9 Unspecified place or not applicable; Z88.6 Allergy status to analgesic agent; Z88.8 Allergy status to other drugs, medicaments and biological substances
CPT/HCPCS: 94640; 99283

== ENCOUNTER 2017-01-12 23:12 | Emergency (ER) | payer MEDICARE, OTHER ==
--- NOTE | ~2017-01-12 | EKG ---
PATIENT: DANIEL RENAE UNIT #: [id number] Ventricular Rate: 102 BPM Atrial Rate: 102 BPM P-R Interval: 130 ms QRS Duration: 108 ms Q-T Interval: 368 ms QTC Calculation(Bezet): 479 ms P [place]: 19 degrees Calculated R [place]: 42 degrees Calculated T [place]: -38 degrees Diagnosis Line: Sinus tachycardia Diagnosis Line: Possible Inferior infarct , age undetermined Diagnosis Line: Nonspecific T wave abnormality Diagnosis Line: Abnormal ECG Diagnosis Line: No previous ECGs available Diagnosis Line: Confirmed by DIPESH CRUZ MD ([id number]) on 01/13/2017 Diagnosis Line: 6:44:36 PM INTERPRETING MD: NANCY MASON
--- NOTE | ~2017-01-12 | EKG ---
PATIENT: DANIEL RENAE UNIT #: [id number] Ventricular Rate: 102 BPM Atrial Rate: 102 BPM P-R Interval: 124 ms QRS Duration: 90 ms Q-T Interval: 350 ms QTC Calculation(Bezet): 456 ms P [place]: 52 degrees Calculated R [place]: 40 degrees Calculated T [place]: -55 degrees Diagnosis Line: Sinus tachycardia Diagnosis Line: Possible Left atrial enlargement Diagnosis Line: Possible Inferior infarct , age undetermined Diagnosis Line: Nonspecific ST and T wave abnormality Diagnosis Line: Abnormal ECG Diagnosis Line: No previous ECGs available Diagnosis Line: Confirmed by DIPESH CRUZ MD ([id number]) on 01/13/2017 Diagnosis Line: 6:45:00 PM INTERPRETING MD: NANCY MASON
--- NOTE | ~2017-01-12 | US85 ---
[facility] A Service of [facility] & [facility] RADIOLOGY TEXT RESULTS PATIENT: DANIEL RENAE LOCATION: [facility] : 67 UNIT #: [id number] AGE: [address]: Winston Gray MD SEX: M ORDER DR: [id number] [facility] [address] [place], [place] [address] [id number] E MR#: [id number] Acc #: [id number] NAME: DANIEL RENAE. : 1965 SEX: M STUDY DATE/TIME: 01/13/2017 8:12 UNIT: [facility] ROOM: STUDY DESCRIPTION: [facility] [employer] Attending Physician: Winston Gray M.D. Ordering Physician: Ynes Gallo M.D. Primary Care Physician: Solo Jimenez M.D. MEDICAL IMAGING REPORT This report is preliminary unless electronic signature is present EXAM Right leg vein Doppler, 01/13 HISTORY Right leg pain for 2 days. TECHNIQUE Venous ultrasound examination of the right lower extremity was performed using grayscale, spectral Doppler and color flow Doppler imaging. FINDINGS The examination is negative. There is no evidence of right lower extremity deep venous thrombus from the groin to the lower calf. Visualized greater saphenous vein is also patent. IMPRESSION Negative examination. No evidence of right lower extremity deep venous thrombosis. Dictated by... Winston Olmos Jr., M.D. THIS IS AN ELECTRONICALLY VERIFIED REPORT Winston Olmos Jr., M.D. at 01/13/2017 1:57 PM Kathie TD: 01/13/2017 11:24 JOB #: [id number] MEDICAL IMAGING REPORT Page 1 of 1 COPY
--- NOTE | ~2017-01-12 | CT16 ---
[facility] A Service of [facility] & [facility] RADIOLOGY TEXT RESULTS PATIENT: DANIEL RENAE LOCATION: [facility] : 67 UNIT #: [id number] AGE: [address]: Ynes Gallo MD SEX: M ORDER DR: [id number] [facility] [address] [place], [place] [address] [id number] E MR#: [id number] [facility] #: [id number] NAME: DANIEL RENAE. : 1965 SEX: M STUDY DATE/TIME: 01/13/2017 1:52 UNIT: [facility] ROOM: STUDY DESCRIPTION: CT Angio Chest for PE Attending Physician: Ynes Gallo M.D. Ordering Physician: Ynes Gallo M.D. Primary Care Physician: Solo Jimenez M.D. MEDICAL IMAGING REPORT This report is preliminary unless electronic signature is present EXAM CT chest with contrast, pulmonary arteriography protocol, 01/13/2017 HISTORY 51-year-old male in the ED complaining of new onset chest pain, weakness and lower extremity pain and swelling. Evaluate for DVT. TECHNIQUE CT examination of the chest was performed with IV contrast using pulmonary arteriography protocol. CTA images of the pulmonary arteries were reformatted in multiple planes. This CT exam was performed with one or more of the following radiation dose reduction techniques: automatic exposure control, adjustment of mA and/or kV according to patient size, and iterative reconstruction. FINDINGS The examination is nondiagnostic for the exclusion of pulmonary embolism within medium and smaller pulmonary arteries in the mid and peripheral lung zones due to poor contrast opacification related to delayed bolus timing. No large pulmonary embolism is present within the main pulmonary arteries or large central pulmonary arteries. Thoracic aorta is normal in caliber. Heart size is normal. Postop changes CABG surgery. Lung images show patchy, subsegmental regions of ground-glass infiltrate in a predominantly peripheral distribution throughout the mid and upper lungs, sparing the lower lobes. Atypical infectious pneumonitis is a consideration. Eosinophilic pneumonia can have a similar appearance and distribution. There was no dense airspace consolidation, and there is no pleural effusion. Mildly prominent mediastinal and hilar lymph nodes are unchanged when compared with prior studies. Stable small pulmonary nodule in the right posterior lung base unchanged since 07/21/2015 should be STS. [facility] A Service of [facility] RADIOLOGY TEXT RESULTS PATIENT: DANIEL RENAE LOCATION: [facility] : 67 UNIT #: [id number] AGE: [address]: Ynes Gallo MD SEX: M ORDER DR: benign. IMPRESSION 1. Nondiagnostic examination for the exclusion of pulmonary embolism within medium and smaller pulmonary arteries in the mid and peripheral lung zones due to delayed contrast bolus timing. There is no large pulmonary embolism within the main pulmonary arteries or largest central pulmonary arteries. 2. Normal-caliber thoracic aorta. Postop changes CABG. No pericardial effusion. 3. Patchy ground-glass infiltrates scattered throughout the periphery of the mid and upper lungs. Correlate clinically for infectious pneumonitis. Inflammatory pneumonitis such as chronic eosinophilic pneumonia can have an identical appearance and distribution. Lungs otherwise clear. No airspace consolidation or pleural effusion. 4. Stable benign pulmonary nodule in the right posterior lung base, unchanged since July 2015. Dictated by... Dano Gusman M.D. THIS IS AN ELECTRONICALLY VERIFIED REPORT Dano Gusman M.D. at 01/13/2017 6:06 AM Vicente TD: 01/13/2017 03:15 JOB #: [id number] MEDICAL IMAGING REPORT Page 1 of 1 COPY
--- NOTE | ~2017-01-12 | NM69 ---
[facility] A Service of [facility] RADIOLOGY TEXT RESULTS PATIENT: DANIEL RENAE LOCATION: [facility] : 67 UNIT #: [id number] AGE: [address]: Winston Gray MD SEX: M ORDER DR: [id number] [facility] [address] [place], [place] [address] [id number] E MR#: [id number] Acc #: [id number] NAME: DANIEL RENAE. : 1965 SEX: M STUDY DATE/TIME: 01/13/2017 7:34 UNIT: [facility] ROOM: STUDY DESCRIPTION: NM Pulm Vent and Perf Attending Physician: Winston Gray M.D. Ordering Physician: Ynes Gallo M.D. Primary Care Physician: Solo Jimenez M.D. MEDICAL IMAGING REPORT This report is preliminary unless electronic signature is present EXAM VQ scan, 01/13 INDICATION Shortness of air with chest pain, back pain and swelling in the legs with dizziness and fatigue. The patient reports symptoms "for quite some time". COPD. FINDINGS Ventilation images were obtained after the administration of 36 mCi of technetium 99m-DTPA aerosol. Corresponding perfusion images were obtained after the IV administration of 6 mCi of technetium 99m-MAA. Comparison is made with chest CT obtained 01/13/2017. Ventilation and perfusion tracer deposition in the lungs is somewhat heterogeneous. However, no VQ mismatches are seen, and there are no segmental perfusion defects. Study is low probability for pulmonary embolism. IMPRESSION Low probability for pulmonary embolism. Dictated by... Winston Olmos Jr., M.D. THIS IS AN ELECTRONICALLY VERIFIED REPORT Winston Olmos Jr., M.D. at 01/13/2017 1:57 PM CRISTIANA/yoana TD: 01/13/2017 11:25 JOB #: [id number] MEDICAL IMAGING REPORT [facility] A Service [facility] RADIOLOGY TEXT RESULTS PATIENT: DANIEL RENAE LOCATION: [facility] #: [id number] : 67 UNIT #: [id number] AGE: [address]: Winston Gray MD SEX: M ORDER DR: Page 1 of 1 COPY
[2017-01-13 01:14] LABS: BASOPHIL% 0.1 % (0-2.5); HEMATOCRIT 33.8 % (38.0-50.0); HEMOGLOBIN 10.9 gm/dL (13.0-16.0); LYMPHOCYTE# 1.9 X10e3 (1.0-3.5); LYMPHOCYTE% 15.1 % (17.0-45.0); MEAN CELL VOLUME 83.3 FL (83-96); MEAN CORPUSCULAR HEMOGLOBIN 26.9 PG (28-34); MEAN CORPUSCULAR HGB CONC 32.3 g/dL (30-36); MEAN PLATELET VOLUME 9.5 FL (6.5-11.5); MONOCYTE# 1.2 X10e3 (0-1.0); MONOCYTE% 9.5 % (3.0-12.0); NEUTROPHIL# 9.5 X10e3 (1.5-7.1); NEUTROPHIL% 75.3 % (40-75); PLATELET COUNT 143 X10e3 (140-420); RED BLOOD COUNT 4.05 X10e (3.90-5.60); RED CELL DISTRIBUTION WIDTH 15.8 % (11.0-15.5); WHITE BLOOD COUNT 12.6 X10e3 (4.0-10.5)
[2017-01-13 01:15] LABS: DIFF IND NO
[2017-01-13 01:30] LABS: PARTIAL THROMBOPLASTIN TIME 23.1 SECONDS (23.5-31.3); PROTHROMBIN TIME (PATIENT) 10.8 SECONDS (9.6-11.5)
[2017-01-13 01:36] LABS: ALBUMIN SERUM 3.9 g/dL (3.5-5.0); ALCOHOL BLOOD <5 mg/dL (0); ALKALINE PHOSPHATASE 75 U/L (32-92); ALT (SGPT) 53 U/L (10-40); AST (SGOT) 68 U/L (10-42); BILIRUBIN, DIRECT 0.1 mg/dL (0.0-0.2); BILIRUBIN,INDIRECT 0.8 mg/dL (0.0-0.9); BILIRUBIN,TOTAL 0.9 mg/dL (0.2-2.0); BLOOD UREA NITROGEN 12 mg/dL (9-23); CARBON DIOXIDE 30 mmol/L (22-31); CHLORIDE 98 mmol/L (100-111); GLOM FILT RATE Estimated 87.4 mL/min (>60); GLUCOSE FASTING 72 mg/dL (70-110); POTASSIUM 3.4 mmol/L (3.5-5.1); PROTEIN TOTAL SERUM 7.3 g/dL (6.0-8.3); SODIUM 136 mmol/L (135-145)
[2017-01-13 01:43] LABS: URINE SOURCE CLEAN CATCH
[2017-01-13 01:50] LABS: URINE APPEARANCE CLEAR; URINE BILIRUBIN NEG (NEG); URINE BLOOD NEG (NEG); URINE COLOR YELLOW; URINE GLUCOSE NEG (NEG); URINE KETONE NEG (NEG); URINE LEUKOCYTE ESTERASE NEG (NEG); URINE NITRATE NEG (NEG); URINE PH 6.5 (5-8); URINE PROTEIN NEG (NEG); URINE SPECIFIC GRAVITY 1.005 (1.003-1.035)
[2017-01-13 01:58] LABS: CULTURE INDICATED? NO
[2017-01-13 01:59] LABS: AMPHETAMINE NEG (NEG); BARBITURATES NEG (NEG); BENZODIAZEPINES NEG (NEG); COCAINE NEG (NEG); MARIJUANA NEG (NEG); OPIATES NEG (NEG); TRICYCLIC ANTIDEPRESSANTS NEG (NEG); U METHADONE NEG (NEG)
[2017-01-13 02:35] LABS: POC - CKMB 5.2 ng/mL (0.0-7.9); POC - TROPONIN <0.05 ng/mL (<=0.05)
[2017-01-13 02:56] LABS: ARTERIAL BLD GAS O2 SATURATION 91.8 % (90.0-100.0); ARTERIAL BLOOD GAS ALLEN TEST NORMAL; ARTERIAL BLOOD GAS ART SITE RIGHT RADIAL; ARTERIAL BLOOD GAS CARBOXY HB 3.4 %sat (0.0-9.0); ARTERIAL BLOOD GAS HCO3 31.5 mmol/L; ARTERIAL BLOOD GAS MET HB 0.8 %sat (0.0-2.0); ARTERIAL BLOOD GAS PCO2 46.5 mmHg (35.0-45.0); ARTERIAL BLOOD GAS PO2 58.4 mmHg (80.0-100); ARTERIAL DRAW? YES
[2017-01-13 02:57] LABS: ARTERIAL BLOOD GAS DELIVERY NASAL CANNULA
[2017-01-13 05:06] LABS: POC - CKMB 10.1 ng/mL (0.0-7.9); POC - TROPONIN <0.05 ng/mL (<=0.05)
[2017-01-13 06:42] LABS: POC - CKMB 5.2 ng/mL (0.0-7.9); POC - TROPONIN <0.05 ng/mL (<=0.05)
[2017-05-01] MEDS ORDERED: DEPAKOTE PO (10:06)
[2017-05-01] MEDS ORDERED: KLONOPIN1 MG PO (10:07)
[2017-05-01] MEDS ORDERED: AMBIEN10 MG PO (10:07)
[2017-05-01] MEDS ORDERED: HYDROCODON-ACE1 EAC5 PO (10:07)
[2017-05-01] MEDS ORDERED: NEURONTIN600 MG PO (10:09)
[2017-05-01] MEDS ORDERED: VIT B-12 PO (10:11)
[2017-05-01] MEDS ORDERED: AMIODARONE HCL200 MG PO (10:12)
[2017-05-01] MEDS ORDERED: XARELTO15 MG PO (10:12)
[2017-05-01] MEDS ORDERED: CYMBALTA30 M1 PO (10:12)
[2017-05-01] MEDS ORDERED: PROTONIX PO (10:13)
[2017-05-01] MEDS ORDERED: K-DUR20 ME1 PO (10:13)
[2017-05-01] MEDS ORDERED: CLOPIDOGREL75 MG PO (10:13)
[2017-05-01] MEDS ORDERED: COREG3.125 MG PO (10:13)
[2017-05-01] MEDS ORDERED: ASPIRIN81 MG PO (10:14)
== END 2017-01-13 10:42 | disposition home or self-care (01) ==
LOC: CED 23:12 → CFTX 23:55 → CED 01-13 10:42
PROVIDERS: Emergency Medicine
DX: M25.561 Pain in right knee (principal); R20.0 Anesthesia of skin; I11.0 Hypertensive heart disease with heart failure; I50.9 Heart failure, unspecified; I25.2 Old myocardial infarction; E78.5 Hyperlipidemia, unspecified; J44.9 Chronic obstructive pulmonary disease, unspecified; G40.909 Epilepsy, unspecified, not intractable, without status epilepticus; K21.9 Gastro-esophageal reflux disease without esophagitis; F17.210 Nicotine dependence, cigarettes, uncomplicated; Z88.8 Allergy status to other drugs, medicaments and biological substances
CPT/HCPCS: 36415; 36600; 71275; 78582; 80048; 80076; 80307; 81003; 82553; 82803; 84484; 85025; 85610; 85730; 93005; 93971; 96365; 96367; 96375; 99284; A9540; A9567; G0480; J0456; J0696; J1200; J2930; Q9967

== ENCOUNTER 2017-02-14 20:42 | Inpatient (IN) | payer MEDICARE, OTHER ==
--- NOTE | ~2017-02-14 | CR17 ---
[facility] A Service of [facility] & [facility] RADIOLOGY TEXT RESULTS PATIENT: DANIEL RENAE LOCATION: [facility] 332-01 : 67 UNIT #: [id number] AGE: [address]: Shahid Rothman MD SEX: M ORDER DR: [id number] [facility] [address] [place], [place] [address] [id number] I MR#: [id number] Acc #: [id number] NAME: DANIEL RENAE : 1965 SEX: M STUDY DATE/TIME: 02/15/2017 10:57 UNIT: [address] ROOM: [facility] STUDY DESCRIPTION: CR Ankle 2 Views Lt Attending Physician: Shahid Rothman M.D. Ordering Physician: Sonja Meredith A.P.R.N. Primary Care Physician: Solo Jimenez M.D. MEDICAL IMAGING REPORT This report is preliminary unless electronic signature is present EXAM Left ankle 3 views, 02/15/2017 10:57 hours HISTORY Pain and numbness in left ankle today. No known injury. COMPARISON Left tibia and fibula and left foot films of 09/18/2016. FINDINGS AP, lateral and oblique views demonstrate no fracture, dislocation or degenerative change at the ankle. IMPRESSION Negative left ankle. Dictated by... Krystle Mora M.D. THIS IS AN ELECTRONICALLY VERIFIED REPORT Krystle Mora M.D. at 02/16/2017 9:34 AM Jonny TD: 02/15/2017 17:36 JOB #: [id number] MEDICAL IMAGING REPORT Page 1 of 1 COPY
--- NOTE | ~2017-02-14 | EKG ---
PATIENT: DANIEL RENAE UNIT #: [id number] Ventricular Rate: 64 BPM Atrial Rate: 64 BPM P-R Interval: 138 ms QRS Duration: 102 ms Q-T Interval: 446 ms QTC Calculation(Bezet): 460 ms P [place]: -1 degrees Calculated R [place]: 22 degrees Calculated T [place]: -37 degrees Diagnosis Line: Normal sinus rhythm Diagnosis Line: Inferior infarct , age undetermined Diagnosis Line: T wave abnormality, consider anterolateral Diagnosis Line: ischemia Diagnosis Line: Abnormal ECG Diagnosis Line: When compared with ECG of 14-FEB-2017 20:44, Diagnosis Line: (unconfirmed) Diagnosis Line: Sinus rhythm has replaced Wide QRS tachycardia Diagnosis Line: Vent. rate has decreased BY 108 BPM Diagnosis Line: Confirmed by SUSY QUILES MD ([id number]) on Diagnosis Line: 02/15/2017 4:23:14 PM INTERPRETING MD: JESSE
--- NOTE | ~2017-02-14 | CR72 ---
[facility] A Service of [facility] & [facility] RADIOLOGY TEXT RESULTS PATIENT: DANIEL RENAE LOCATION: [facility] 332-01 : 67 UNIT #: [id number] AGE: [address]: Shahid Rothman MD SEX: M ORDER DR: [id number] [facility] [address] [place], [place] [address] [id number] I MR#: [id number] Acc #: [id number] NAME: DANIEL RENAE. : 1965 SEX: M STUDY DATE/TIME: 02/14/2017 21:20 UNIT: [address] ROOM: [facility] STUDY DESCRIPTION: CR Chest Single View Portable Attending Physician: Shahid Rothman M.D. Ordering Physician: Preston White M.D. Primary Care Physician: Solo Jimenez M.D. MEDICAL IMAGING REPORT This report is preliminary unless electronic signature is present EXAM Frontal chest 02/14/2017 INDICATIONS Altered mental status, shortness of air symptoms began today, hypertension, COPD. TECHNIQUE Frontal chest compared with 11/08/2016. FINDINGS Cardiac silhouette is within normal limits. Vascularity normal. Lung volumes are low but the lungs are clear. No pneumothorax. IMPRESSION Low-volume image otherwise negative frontal chest. Dictated by... Tani Argueta M.D. THIS IS AN ELECTRONICALLY VERIFIED REPORT Tani Argueta M.D. at 02/15/2017 2:01 PM SONYA/shira TD: 02/15/2017 12:12 JOB #: [id number] MEDICAL IMAGING REPORT Page 1 of 1 COPY
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
--- NOTE | ~2017-02-14 | CT16 ---
[facility] A Service of [facility] RADIOLOGY TEXT RESULTS PATIENT: DANIEL RENAE LOCATION: [facility] 332 : 67 UNIT #: [id number] AGE: [address]: Shahid Rothman MD SEX: M ORDER DR: [id number] [facility] [address] [place], [place] [address] [id number] I MR#: [id number] Acc #: [id number] NAME: DANIEL RENAE. : 1965 SEX: M STUDY DATE/TIME: 02/15/2017 14:53 [facility] ROOM: [facility] STUDY DESCRIPTION: CT Angio Chest for PE Attending Physician: Shahid Rothman M.D. Ordering Physician: Shahid Rothman M.D. Primary Care Physician: Solo Jimenez M.D. MEDICAL IMAGING REPORT This report is preliminary unless electronic signature is present EXAM Chest CT angiogram with contrast, 02/15/2017 PROCEDURE Axial contrast enhanced chest CT angiogram with 3-dimensional reformats. This CT exam was performed with one or more of the following radiation dose reduction techniques: automatic exposure control, adjustment of mA and/or kV according to patient size, and iterative reconstruction. CLINICAL HISTORY Short of air for 1-day with elevated D-dimer. COMPARISON Chest CT angiogram 01/13/2017. FINDINGS There is no pulmonary infiltrate, pleural effusion, pneumothorax or suspicious nodule. There is mild cardiomegaly. Bolus timing is good and there is no evidence of pulmonary embolism. Images of the upper abdomen show mild gastric distension but are otherwise unremarkable. The bony structures are normal. IMPRESSION Negative chest CT angiogram. Good bolus timing and no evidence of pulmonary embolism. There is no acute pulmonary process. There is coronary atherosclerotic vascular calcification but there has been prior sternotomy. No acute pulmonary process is seen. Dictated by... [facility] A Service of [facility] RADIOLOGY TEXT RESULTS PATIENT: DANIEL RENAE LOCATION: [facility] 332 : [birth year] UNIT #: [id number] AGE: [address]: Shahid Rothman MD SEX: M ORDER DR: Faizan Sosa M.D. THIS IS AN ELECTRONICALLY VERIFIED REPORT Faizan Sosa M.D. at 02/16/2017 10:26 AM YO/indu TD: 02/15/2017 20:18 JOB #: [id number] MEDICAL IMAGING REPORT Page 1 of 1 COPY
--- NOTE | ~2017-02-14 | EKG ---
PATIENT: DANIEL RENAE UNIT #: [id number] Ventricular Rate: 172 BPM Atrial Rate: 0 BPM QRS Duration: 132 ms Q-T Interval: 302 ms QTC Calculation(Bezet): 510 ms Calculated R [place]: -75 degrees Calculated T [place]: 89 degrees Diagnosis Line: Wide QRS tachycardia Diagnosis Line: Left axis deviation Diagnosis Line: Right bundle branch block Diagnosis Line: Left ventricular hypertrophy with repolarization Diagnosis Line: abnormality Diagnosis Line: Cannot rule out Inferior infarct , age Diagnosis Line: undetermined Diagnosis Line: Abnormal ECG Diagnosis Line: When compared with ECG of 13-JAN-2017 02:13, Diagnosis Line: Wide QRS tachycardia has replaced Sinus rhythm Diagnosis Line: Vent. rate has increased BY 70 BPM Diagnosis Line: Confirmed by MARGOT JIM MD ([id number]) on 02/17/2017 Diagnosis Line: 7:55:30 AM INTERPRETING MD: DIANDRA MASON
--- NOTE | ~2017-02-14 | CT52 ---
[facility] A [facility] RADIOLOGY TEXT RESULTS PATIENT: DANIEL RENAE LOCATION: [facility] 332 : [birth year] UNIT #: [id number] AGE: [address]: Shahid Rothman MD SEX: M ORDER DR: [id number] [facility] [address]. [place], [place] [address] [id number] I MR#: [id number] Acc #: [id number] NAME: DANIEL RENAE. : 1965 SEX: M STUDY DATE/TIME: 02/14/2017 21:58 [facility]OM: [facility] STUDY DESCRIPTION: CT Cervical Spine Wo Cont Attending Physician: Shahid Rothman M.D. Ordering Physician: Preston White M.D. Primary Care Physician: Solo iJmenez M.D. MEDICAL IMAGING REPORT This report is preliminary unless electronic signature is present EXAM CT scan of the cervical spine without contrast HISTORY Neck pain today after trying to kill himself. COMPARISON 09/18/2016 TECHNIQUE Axial 2.0 mm images were obtained through the cervical spine and sagittal and coronal reconstructions were generated. This CT exam was performed with one or more of the following radiation dose reduction techniques: automatic exposure control, adjustment of mA and/or kV according to patient size, and iterative reconstruction. FINDINGS The alignment is normal. There is some anterior osteophyte formations from C3 through C7. There is no fracture or subluxation. The soft tissues are normal. IMPRESSION Mild anterior degenerative changes, otherwise normal. Dictated by... Juan Martin M.D. THIS IS AN ELECTRONICALLY VERIFIED REPORT Juan Martin M.D. at 02/15/2017 1:43 PM MARISOL/yoana [facility] A [facility] RADIOLOGY TEXT RESULTS PATIENT: DANIEL RENAE LOCATION: [facility] 332 : 67 UNIT #: [id number] AGE: [address]: Shahid Rothman MD SEX: M ORDER DR: TD: 02/15/2017 12:42 JOB #: [id number] MEDICAL IMAGING REPORT Page 1 of 1 COPY
--- NOTE | ~2017-02-14 | CO ---
Unit #: [id number] #: [id number] Patient: DANIEL RENAE [id number] [facility]. [place], [place] [address] [id number] I MR#: [id number] NAME: DANIEL RENAE ROOM: 332 Age: 51 Sex: M Admission Date: 02/15/2017 : 1965 Attending Physician: Shahid Rothman M.D. Primary Care Physician: Solo Jimenez M.D. Consultation Date: 02/15/2017 CONSULTATION REPORT HISTORY OF PRESENT ILLNESS This is a 51-year-old male who apparently was found unresponsive by family at home. I am currently seeing the patient in ICU 18. He is alert and oriented and states he took some pills at home. He was not sure what they were, multiple pills, and began to feel funny and passed out. This was witnessed apparently by the family, and they called EMS and brought him in. He was diagnosed with suspected polysubstance overdose they think possibly from Opana. The patient has been followed in the office by Dr. Brunson in the past. Last office visit was January 07, 2017, but prior to that, he had not been seen since 2014. He has a past medical history of COPD, systolic congestive heart failure, and known coronary artery disease, status post CABG in [place] in 2012. Last records here show the patient had a cardiac catheterization on November 04, 2014, per Dr. Molina, which showed 70% stenosis mid LAD with a patent HEART to the distal LAD, 90% stenosis of the second marginal branch of the circumflex, 2.5 mm artery, no vein graft to the second marginal branch, occluded posterior marginal branch of the circumflex with a patent vein graft to the posterior marginal branch of the circumflex, occluded posterior descending branch of the circumflex, patent saphenous vein graft to posterior descending artery branch of the circumflex, an 80-90% stenosis in a nondominant right coronary artery, and 100% stenosis right internal mammary artery, and at that time, it was felt that his angina could be a result of ischemia in the distribution of the very small caliber second marginal branch of the circumflex and a nondominant RCA. Continued medical therapy was recommended at that time. It is also notable the patient also has a history of ventricular tachycardia and is status post [facility] [facility] AICD in 2016. I believe this was placed by Dr. Whitaker. In the ER, the patient was found to be in a wide-complex tachycardia that appears to be most likely nonsustained ventricular tachycardia, rate of 172 beats per minute. In the emergency room, he was given Narcan, as well as an amp of sodium bicarbonate, and apparently his rhythm converted spontaneously. There was no discharge of his defibrillator. EKG shows normal sinus rhythm at 64 beats per minute. A nonspecific T wave abnormality is noted. No acute ischemia is noted. Initial cardiac enzymes have been negative. At present, while seeing the patient, he is complaining of chest pain described as aching, left chest wall, with radiation into the left arm. Denies shortness of breath, palpitations, dizziness, nausea, vomiting, or diaphoresis. He is threatening to leave AMA if he does not receive Unit #: [id number] #: [id number] Patient: DANIEL RENAE opiates. The patient was offered nitroglycerin and at first was denying. This was when I was examining him. But eventually was agreeable with no relief in his chest discomfort. He has a history of hepatitis C. It appears the patient has not been taking his routinely ordered cardiac medications. According to the medication reconciliation, it appears he is only on Neurontin, Klonopin, and Ambien. PAST MEDICAL HISTORY 1. Known coronary artery disease with a history of CABG after [place] in 2012. On cardiac cath in 2014, HEART to the LAD is open and patent, small caliber second marginal branch that was occluded, as well as 80-90% stenosis of the nondominant RCA. Vein graft to the RCA was occluded. 2. A 2D echocardiogram from November 08, 2016, showed LV is normal. Left ventricular size is normal. Mild LVH. Impaired relaxation grade 1. LV systolic function is reduced at 45%. Mild to moderate aortic regurgitation. Trace mitral and trace tricuspid regurgitation. 3. Hypertension. 4. Hyperlipidemia. 5. History of ventricular tachycardia. 6. Automatic implantable cardioverter-defibrillator placement, [employer] [facility] device, in June 2016, at [facility]. 7. Chronic obstructive pulmonary disease. 8. Tobacco abuse, continued. 9. Seizures. 10. Polysubstance abuse. 11. Hepatitis C. 12. Gastroesophageal reflux disease. 13. Depression. 14. Spinal cord injury. 15. Congestive heart failure. 16. Alcoholism. 17. Ischemic cardiomyopathy. 18. Sleep apnea. 19. Questionable CVA in June 2014 at [facility], given thrombolytics. 20. Admission to [facility] in November 2015 for a traumatic, tiny subarachnoid hemorrhage. 21. History of behavioral issues with history of suicidal ideation and admission to [facility]. 22. Bipolar disorder and personality disorder. ALLERGIES Norflex, Demerol, and Toradol. HOME MEDICATIONS Current home medications confirmed by the pharmacy as: 1. Neurontin 600 mg p.o. b.i.d. 2. Klonopin 1 mg p.o. t.i.d. 3. Ambien 10 mg p.o. at bedtime. FAMILY HISTORY Patient reports a family history of coronary artery disease in both his mother and father with early cardiac in his father. Unit #: [id number] #: [id number] Patient: OCDANIEL Paris SOCIAL HISTORY Patient lives with his girlfriend. He has smoked approximately one pack a day for about 35 years. He denies drugs other than what was taken this time but apparently has a history of polysubstance abuse. Denies alcohol. REVIEW OF SYSTEMS Positive for what was stated above in the History of Present Illness. PHYSICAL EXAMINATION GENERAL: This is an agitated, 51-year-old male in no acute distress. He does appear anxious. VITAL SIGNS: Temperature 97.6, respiratory rate 17, pulse 96, and blood pressure 120/72. BMI is 21. HEENT: Head is atraumatic and normocephalic. Pupils are equal and round. Pharynx is benign. Mucous membranes are dry. NECK: Supple. No thyromegaly or adenopathy. Trachea is midline. No JVD. Carotid upstrokes are normal. CARDIAC: S1 and S2, currently normal sinus rhythm. No murmur, gallop, or rub is auscultated. LUNGS: Clear to auscultation, diminished in the bases. ABDOMEN: Bowel sounds are present. No hepatosplenomegaly or masses. EXTREMITIES: Pulses are palpable. No clubbing, cyanosis, or edema. NEUROLOGIC: The patient is awake, alert, and oriented. He follows all commands. He moves all extremities. DIAGNOSTIC STUDIES LABORATORY: Sodium 137, potassium 4.1, chloride 102, CO2 of 27, BUN 14, creatinine 0.8, and glucose 100. Initial cardiac enzymes have been less than 0.05. Hemoglobin 10.9, hematocrit 33.6, WBC 7.8, and platelet count 132,000. Magnesium 1.7. Urine drug screen is positive for benzodiazepines, opiates and tricyclic antidepressants. IMAGING: Chest x-ray shows low lung volumes, otherwise negative, with no active disease. CARDIOLOGY: EKG initially showed wide-complex tachycardic most likely ventricular tachycardia, rate of 172 beats per minute. Repeat EKG this morning shows normal sinus rhythm at 69 beats per minute. Nonspecific ST and T wave abnormalities noted. No acute ischemic change. ASSESSMENT 1. Polysubstance overdose. Urine drug screen was positive for opiates, benzodiazepines, and tricyclic antidepressants. 2. Wide-complex tachycardia, most likely ventricular tachycardia. 3. History of coronary artery disease, status post coronary artery bypass grafting in 2013. Also see most recent catheterization results from 2015 above. 4. Automatic implantable cardioverter-defibrillator placement, [facility] [facility], in 2016, either at [facility] or [facility]. 5. Hypertension. 6. Hyperlipidemia. 7. Continued tobacco abuse. 8. Chest pain, rule out acute coronary syndrome. 9. History of ischemic cardiomyopathy. Ejection fraction most recently was 45% per echocardiogram on November 08, 2016. 10. Hepatitis C. 11. Bipolar disorder. 12. Prior history of suicidal ideation and admission to [facility]. Unit #: [id number] #: [id number] Patient: DANIEL RENAE 13. Hypomagnesemia. PLAN Patient was admitted with polysubstance overdose. On arrival to the emergency room, he was found to be in a wide-complex tachycardia, rate of 172 beats per minute. He was given Narcan, as well as sodium bicarbonate, and spontaneously converted. His AICD did not fire. At this time, he is complaining of chest pain with left arm pain. Will get an EKG now. Patient was given four baby aspirin. Trend cardiac enzymes, first one stat. Initial cardiac enzymes thus far have been negative. Will check a fasting lipid profile. The patient will be started next on topical nitrates and aspirin daily, as well as statin therapy. His IV Lopressor will be changed to Toprol-XL 25 mg daily with parameters. Will check a 2D echocardiogram and also start him on Lovenox. The patient will also receive magnesium sulfate 2 grams IV x1 now. Will also ask [employer] rep to come in and interrogate the patient's device, as I am not sure when it was interrogated or looked at last. Further recommendations pending Dr. Tanner's assessment. Dictated by... Maria Luz Garcia/alberto TD: 02/15/2017 17:56 JOB #: [id number] CONSULTATION REPORT Page 1 of 1 X Sonja Meredith APRN X CONSULTATION REPORT
--- NOTE | ~2017-02-14 | US84 ---
[id number] [facility]. [facility] [address] [place], [place] [address] [id number] I MR#: [id number] Acc #: [id number] NAME: DANIEL RENAE : 1965 SEX: M STUDY DATE/TIME: 02/15/2017 13:15 UNIT: C3A PCU ROOM: 332 STUDY DESCRIPTION: US LE Veins Complete Jose Stdy Attending Physician: Shahid Rothman M.D. Ordering Physician: Shahid Rothman M.D. Primary Care Physician: Solo Jimenez M.D. MEDICAL IMAGING REPORT This report is preliminary unless electronic signature is present EXAM Color Doppler also examination of both lower extremities HISTORY Shortness of breath and left leg pain for the past 4 days. TECHNIQUE Ultrasound evaluation was performed with garnett-scale color-flow and Doppler spectral waveform analysis. FINDINGS The examination is negative. There is no evidence of deep venous thrombus from the groin to the lower calf bilaterally. Visualized greater saphenous veins are also patent. IMPRESSION Negative examination. No evidence of lower extremity deep venous thrombosis. STAT * RESULT Dictated by... Winston Pena M.D. THIS IS AN ELECTRONICALLY VERIFIED REPORT Winston Pena M.D. at 02/15/2017 4:54 PM PROSPER/vasquez TD: 02/15/2017 13:49 JOB #: [id number] MEDICAL IMAGING REPORT Page 1 of 1 COPY
--- NOTE | ~2017-02-14 | CT71 ---
[facility] A Service of [facility] RADIOLOGY TEXT RESULTS PATIENT: DANIEL RENAE LOCATION: [facility] 332 : 67 UNIT #: [id number] AGE: [address]: Shahid Rothman MD SEX: M ORDER DR: [id number] [facility] [address] [place], [place] [address] [id number] I MR#: [id number] Acc #: [id number] NAME: DANIEL RENAE. : 1965 SEX: M STUDY DATE/TIME: 02/14/2017 21:58 UNIT: [facility] PCU ROOM: [facility] STUDY DESCRIPTION: CT Head Wo Contrast Attending Physician: Shahid Rothman M.D. Ordering Physician: Preston White M.D. Primary Care Physician: Solo Jimenez M.D. MEDICAL IMAGING REPORT This report is preliminary unless electronic signature is present EXAM CT scan of the head without contrast INDICTIONS Confusion starting today. Patient trying to kill himself. COMPARISON: 12/11/16 TECHNIQUE Axial noncontrast images were obtained from the skull base to the vertex. This CT exam was performed with one or more of the following radiation dose reduction techniques: automatic exposure control, adjustment of mA and/or kV according to patient size, and iterative reconstruction. FINDINGS Ventricular size and configuration are normal. There is no evidence of acute infarct or hemorrhage. There are no extraaxial fluid collections. No mass lesion or mass effect is seen. There are no skull fractures. IMPRESSION Normal noncontrast head CT. Dictated by... Juan Martin M.D. THIS IS AN ELECTRONICALLY VERIFIED REPORT Juan Martin M.D. at 02/15/2017 1:42 PM [facility]/cmm [facility] A Service [facility][1] RADIOLOGY TEXT RESULTS PATIENT: DANIEL RENAE LOCATION: [facility] 332 : [birth year] UNIT #: [id number] AGE: [address]: Shahid Rothman MD SEX: M ORDER DR: TD: 02/15/2017 12:35 JOB #: [id number] MEDICAL IMAGING REPORT Page 1 of 1 COPY
[2017-02-14 21:43] LABS: POC - CKMB 10.1 ng/mL (0.0-7.9); POC - TROPONIN <0.05 ng/mL (<=0.05)
[2017-02-14 21:44] LABS: BASOPHIL% 0.1 % (0-2.5); HEMATOCRIT 34.6 % (38.0-50.0); LYMPHOCYTE# 0.9 X10e3 (1.0-3.5); MEAN CELL VOLUME 81.4 FL (83-96); MEAN CORPUSCULAR HEMOGLOBIN 25.9 PG (28-34); MEAN CORPUSCULAR HGB CONC 31.8 g/dL (30-36); MEAN PLATELET VOLUME 9.1 FL (6.5-11.5); MONOCYTE# 0.8 X10e3 (0-1.0); NEUTROPHIL# 9.7 X10e3 (1.5-7.1); NEUTROPHIL% 84.9 % (40-75); PLATELET COUNT 139 X10e3 (140-420); RED BLOOD COUNT 4.25 X10e (3.90-5.60); RED CELL DISTRIBUTION WIDTH 17.1 % (11.0-15.5); WHITE BLOOD COUNT 11.4 X10e3 (4.0-10.5)
[2017-02-14 21:45] LABS: DIFF IND NO
[2017-02-14 22:05] LABS: ALBUMIN SERUM 3.7 g/dL (3.5-5.0); ALKALINE PHOSPHATASE 66 U/L (32-92); ALT (SGPT) 78 U/L (10-40); AST (SGOT) 64 U/L (10-42); BILIRUBIN,TOTAL 0.5 mg/dL (0.2-2.0); BLOOD UREA NITROGEN 17 mg/dL (9-23); CALCIUM SERUM 8.4 mg/dL (8.4-10.2); CARBON DIOXIDE 27 mmol/L (22-31); CHLORIDE 96 mmol/L (100-111); GLOM FILT RATE Estimated 87.4 mL/min (>60); GLUCOSE FASTING 133 mg/dL (70-110); POTASSIUM 3.8 mmol/L (3.5-5.1); SALICYLATE <4.0 mg/dL; SODIUM 131 mmol/L (135-145)
[2017-02-14 22:07] LABS: ACETAMINOPHEN <10 ug/mL; ALCOHOL BLOOD <5 mg/dL (0)
[2017-02-14 22:30] LABS: AMPHETAMINE NEG (NEG); BARBITURATES NEG (NEG); BENZODIAZEPINES POS (NEG); COCAINE NEG (NEG); MARIJUANA NEG (NEG); OPIATES POS (NEG); TRICYCLIC ANTIDEPRESSANTS POS (NEG); U METHADONE NEG (NEG)
[2017-02-14 22:31] LABS: INR 1.1
[2017-02-15 05:30] LABS: BASOPHIL% 0.4 % (0-2.5); EOSINOPHIL% 0.1 % (0.0-7.0); HEMATOCRIT 33.6 % (38.0-50.0); HEMOGLOBIN 10.9 gm/dL (13.0-16.0); LYMPHOCYTE# 1.6 X10e3 (1.0-3.5); MEAN CELL VOLUME 81.9 FL (83-96); MEAN CORPUSCULAR HEMOGLOBIN 26.4 PG (28-34); MEAN CORPUSCULAR HGB CONC 32.3 g/dL (30-36); MEAN PLATELET VOLUME 9.6 FL (6.5-11.5); MONOCYTE# 0.7 X10e3 (0-1.0); MONOCYTE% 9.1 % (3.0-12.0); NEUTROPHIL# 5.5 X10e3 (1.5-7.1); NEUTROPHIL% 70.4 % (40-75); PLATELET COUNT 132 X10e3 (140-420); RED BLOOD COUNT 4.11 X10e (3.90-5.60); WHITE BLOOD COUNT 7.8 X10e3 (4.0-10.5)
[2017-02-15 05:37] LABS: DIFF IND NO
[2017-02-15 06:48] LABS: BUN/CREATININE RATIO 17.5; CALCIUM SERUM 8.3 mg/dL (8.4-10.2); CREATININE SERUM 0.8 mg/dL (0.6-1.4); GLOM FILT RATE Estimated 104.2 mL/min (>60); MAGNESIUM 1.7 mg/dL (1.6-3.0); POTASSIUM 4.1 mmol/L (3.5-5.1)
[2017-02-15 07:07] LABS: MB 59.6 ng/ml
[2017-02-15] MEDS ORDERED: KLONOPIN1 MG PO (08:26)
[2017-02-15] MEDS ORDERED: NEURONTIN600 MG PO (08:26)
[2017-02-15] MEDS ORDERED: AMBIEN PO (08:27)
[2017-02-15 10:23] LABS: %MB 0.9 % (0.0-4.0); MB 85.7 ng/ml
[2017-02-15 10:45] LABS: CHOLESTEROL 150 mg/dL (0-200); HDL CHOLESTEROL 30 mg/dL (29-75); LDL CHOLESTEROL 104 mg/dL (-130); LDL/HDL RATIO 3 RATIO (0-4); TRIGLYCERIDES 78 mg/dL (10-160)
[2017-02-15 17:34] LABS: %MB 0.9 % (0.0-4.0); MB 87.4 ng/ml
[2017-02-16 05:39] LABS: BASOPHIL% 0.7 % (0-2.5); EOSINOPHIL# 0.2 X10e3 (0-0.7); EOSINOPHIL% 5.8 % (0.0-7.0); HEMATOCRIT 33.7 % (38.0-50.0); HEMOGLOBIN 10.9 gm/dL (13.0-16.0); LYMPHOCYTE# 1.3 X10e3 (1.0-3.5); MEAN CELL VOLUME 81.9 FL (83-96); MEAN CORPUSCULAR HEMOGLOBIN 26.4 PG (28-34); MEAN CORPUSCULAR HGB CONC 32.2 g/dL (30-36); MEAN PLATELET VOLUME 9.1 FL (6.5-11.5); MONOCYTE# 0.5 X10e3 (0-1.0); NEUTROPHIL# 2.2 X10e3 (1.5-7.1); NEUTROPHIL% 52.5 % (40-75); PLATELET COUNT 120 X10e3 (140-420); RED BLOOD COUNT 4.12 X10e (3.90-5.60); RED CELL DISTRIBUTION WIDTH 17.1 % (11.0-15.5); WHITE BLOOD COUNT 4.3 X10e3 (4.0-10.5)
[2017-02-16 05:46] LABS: DIFF IND NO
[2017-02-16 06:25] LABS: CALCIUM SERUM 8.5 mg/dL (8.4-10.2); CREATININE SERUM 0.6 mg/dL (0.6-1.4); GLOM FILT RATE Estimated 117.3 mL/min (>60); MAGNESIUM 1.8 mg/dL (1.6-3.0); POTASSIUM 3.6 mmol/L (3.5-5.1)
[2017-02-16 06:59] LABS: %MB 0.8 % (0.0-4.0); MB 47.5 ng/ml
[2017-02-16] MEDS ORDERED: AMIODARONE HCL200 MG PO (13:24)
[2017-05-01] MEDS ORDERED: DEPAKOTE PO (10:06)
[2017-05-01] MEDS ORDERED: HYDROCODON-ACE1 EAC5 PO (10:07)
[2017-05-01] MEDS ORDERED: AMBIEN10 MG PO (10:07)
[2017-05-01] MEDS ORDERED: KLONOPIN1 MG PO (10:07)
[2017-05-01] MEDS ORDERED: NEURONTIN600 MG PO (10:09)
[2017-05-01] MEDS ORDERED: VIT B-12 PO (10:11)
[2017-05-01] MEDS ORDERED: AMIODARONE HCL200 MG PO (10:12)
[2017-05-01] MEDS ORDERED: XARELTO15 MG PO (10:12)
[2017-05-01] MEDS ORDERED: CYMBALTA30 M1 PO (10:12)
[2017-05-01] MEDS ORDERED: PROTONIX PO (10:13)
[2017-05-01] MEDS ORDERED: K-DUR20 ME1 PO (10:13)
[2017-05-01] MEDS ORDERED: COREG3.125 MG PO (10:13)
[2017-05-01] MEDS ORDERED: CLOPIDOGREL75 MG PO (10:13)
[2017-05-01] MEDS ORDERED: ASPIRIN81 MG PO (10:14)
== END 2017-02-16 14:29 | disposition home or self-care (01) | DRG 918 ==
LOC: CED 20:42 → CEDOF 02-15 00:28 → CED 02-15 00:28 → C3A PCU 02-15 00:28 → CEDOF 02-15 00:40 → CICCU3 02-15 01:38 → CEDOF 02-15 01:38 → CICCU3 02-15 07:34 → C3A PCU 02-15 11:52 → CICCU3 02-15 11:52 → C3A PCU 02-16 14:29
PROVIDERS: Emergency Medicine; Internal Medicine; Nurse Practitioner
PROC: B32TYZZ Computerized Tomography (CT Scan) of Left Pulmonary Artery using Other Contrast (ICD-10-PCS; principal; 2017-02-15)
PROC: B32SYZZ Computerized Tomography (CT Scan) of Right Pulmonary Artery using Other Contrast (ICD-10-PCS; 2017-02-15)
PROC: B24BYZZ Ultrasonography of Heart with Aorta using Other Contrast (ICD-10-PCS; 2017-02-15)
DX: T40.2X1A Poisoning by other opioids, accidental (unintentional), initial encounter (principal); I47.2 Ventricular tachycardia; M62.82 Rhabdomyolysis; I11.0 Hypertensive heart disease with heart failure; I50.22 Chronic systolic (congestive) heart failure; E83.42 Hypomagnesemia; F31.9 Bipolar disorder, unspecified; T54.2X1A Toxic effect of corrosive acids and acid-like substances, accidental (unintentional), initial encounter; I25.5 Ischemic cardiomyopathy; J44.9 Chronic obstructive pulmonary disease, unspecified; G40.909 Epilepsy, unspecified, not intractable, without status epilepticus; F11.10 Opioid abuse, uncomplicated; F19.10 Other psychoactive substance abuse, uncomplicated; Z95.810 Presence of automatic (implantable) cardiac defibrillator; I25.10 Atherosclerotic heart disease of native coronary artery without angina pectoris; Z95.1 Presence of aortocoronary bypass graft; E78.5 Hyperlipidemia, unspecified; B19.20 Unspecified viral hepatitis C without hepatic coma; K21.9 Gastro-esophageal reflux disease without esophagitis; F60.9 Personality disorder, unspecified; G89.29 Other chronic pain; F10.21 Alcohol dependence, in remission; F17.210 Nicotine dependence, cigarettes, uncomplicated
CPT/HCPCS: 70450; 71010; 71275; 72125; 73600; 80048; 80053; 80061; 80307; 82550; 82553; 82947; 83605; 83735; 84484; 85025; 85379; 85610; 85730; 93005; 93306; 93970; 94760; 99291; G0480; J1650; J1953; J3475; J3490; Q9967

== ENCOUNTER → 2017-04-08 | Outpatient (CLI) | payer MEDICARE, OTHER ==
[~2017-04-08] MED LIST changes: +AMBIEN PO; +AMBIEN10 MG PO; +AMIODARONE HCL200 MG PO; +CYMBALTA30 M1 PO; +DEPAKOTE PO; +HYDROCODON-ACE1 EAC5 PO; +K-DUR20 ME1 PO; +NEURONTIN600 MG PO; +PROTONIX PO; +VIT B-12 PO
--- NOTE | ~2017-04-08 | US85 ---
[facility] A Service of [facility] RADIOLOGY TEXT RESULTS PATIENT: DANIEL RENAE LOCATION: [facility] : 67 UNIT #: [id number] AGE: [address]: NANCY SOUSA MD SEX: M ORDER DR: [id number] [facility] [address] [place], [place] [address] [id number] O MR#: [id number] Acc #: [id number] NAME: DANIEL RENAE : 1965 SEX: M STUDY DATE/TIME: 04/08/2017 12:08 UNIT: [facility] ROOM: STUDY DESCRIPTION: [facility] [employer] Stdy Attending Physician: Nancy Sousa M.D. Referring Physician: Nancy Sousa M.D. Ordering Physician: Anson Not Listed Primary Care Physician: Brook Benjamin M.D. MEDICAL IMAGING REPORT This report is preliminary unless electronic signature is present EXAM Unilateral left lower extremity venous Doppler, 04/08/2017. HISTORY Left leg pain for 2 months. TECHNIQUE Venous ultrasound examination of the left lower extremity was performed using grayscale, spectral Doppler and color flow Doppler imaging. FINDINGS The examination is negative. There is no evidence of left lower extremity deep venous thrombus from the groin to the lower calf. Visualized greater saphenous vein is also patent. IMPRESSION Negative examination. No evidence of left lower extremity deep venous thrombosis. Dictated by... Faizan Sosa M.D. THIS IS AN ELECTRONICALLY VERIFIED REPORT Faizan Sosa M.D. at 04/08/2017 4:05 PM YO/diana TD: 04/08/2017 15:05 JOB #: [id number] MEDICAL IMAGING REPORT Page 1 of 1 COPY
== END | disposition home or self-care (01) ==
LOC: CNIV 11:24
DX: M79.672 Pain in left foot (principal)
CPT/HCPCS: 93971